=== PATIENT | female | born 1975 | race Hispanic/Latino ===

== ENCOUNTER 2018-03-19 18:00 | Emergency (ER) | payer MEDICAID ==
[2018-03-19 19:13] LABS: APPEARANCE,URINE Clear (CLEAR); BILIRUBIN,URINE Negative (NEGATIVE); COLOR,URINE Yellow (YELLOW); GLUCOSE, URINE (UA) Negative (NEGATIVE); KETONES,URINE Negative (NEGATIVE); LEUKOCYTE ESTERASE ,URINE Negative (NEGATIVE); NITRATE,URINE Negative (NEGATIVE); OCCULT BLOOD,URINE Negative (NEGATIVE); PROTEIN,URINE Negative (NEGATIVE)
[2018-03-19 19:16] LABS: HCG,QUAL RESULT NEGATIVE (NEGATIVE)
[2018-03-19] MEDS ORDERED: SODIUM CHLORIDE 0.9% 1000ML 1,000 ML IV ONE (19:24)
[2018-03-19] MEDS ORDERED: KETOROLAC TROMETHAMINE 30MG/ML ONE (19:24)
[2018-03-19 19:27] LABS: BASOPHILS % (AUTO) 0.8 % (0.0-5.0); EOSINOPHILS % (AUTO) 0.3 % (0.0-8.0); HEMATOCRIT 35.1 % (36-48); LYMPHOCYTES % (AUTO) 16.1 % (21.0-51.0); MEAN CORPUSCULAR HEMOGLOBIN 25.7 pg (27.0-33.0); MEAN CORPUSCULAR HGB CONC 33.3 g/dL (32.0-36.0); MEAN CORPUSCULAR VOLUME 77.3 fL (79-99); MONOCYTES % (AUTO) 7.8 % (3.0-13.0); PLATELET COUNT (AUTO) 185 K/uL (130-400); RED BLOOD CELL COUNT(AUTO) 4.54 MIL/uL (4.00-5.50); RED CELL DISTRIBUTION WIDTH 17.2 % (11.0-15.5); WHITE BLOOD COUNT (AUTO) 5.9 K/uL (4.8-10.8)
[2018-03-19 19:39] LABS: CREATININE 1.1 mg/dL (0.5-1.5); POTASSIUM 3.8 mmol/L (3.5-5.1)
[2018-03-19] MEDS ORDERED: IOHEXOL-350 75 ML VIAL IV ONE (19:48)
[2018-03-19 19:49] LABS: ALBUMIN 3.2 g/dL (3.5-5.0); BILIRUBIN,DIRECT 0.1 mg/dL (0.0-0.3); BILIRUBIN,TOTAL 0.4 mg/dL (0.2-1.0); TOTAL PROTEIN, SERUM 7.6 g/dL (6.0-8.3)
[2018-03-19] MEDS ORDERED: ACETAMINOPHEN-CODEINE ELIXIR 5 ML UDCUP ONE (21:33)
== END 2018-03-19 23:39 | disposition home or self-care (01) ==
LOC: EDH 18:00
DX: N83.299 Other ovarian cyst, unspecified side (principal); R10.2 Pelvic and perineal pain; Z88.6 Allergy status to analgesic agent; Z72.0 Tobacco use
CPT/HCPCS: 36415; 74177; 76856; 80048; 80076; 81003; 81025; 83690; 85025; 87210; 87486; 87797; 96374; 99285; J1885; J7030; Q9967

== ENCOUNTER 2018-04-13 05:06 | Emergency (ER) | payer MEDICAID | END 2018-04-13 05:54 | disposition home or self-care (01) | LOC: EDH 05:06 | DX: J20.9 Acute bronchitis, unspecified (principal); M54.9 Dorsalgia, unspecified; Z88.8 Allergy status to other drugs, medicaments and biological substances; Z98.890 Other specified postprocedural states ==

== ENCOUNTER 2018-08-03 19:12 | Emergency (ER) | payer MEDICAID | END 2018-08-03 20:05 | disposition home or self-care (01) | LOC: EDH 19:12 | DX: R05 Cough (principal); R09.3 Abnormal sputum; Z90.49 Acquired absence of other specified parts of digestive tract; Z88.6 Allergy status to analgesic agent ==

== ENCOUNTER 2023-01-02 09:16 | Observation (INO) | payer MEDICAID, OTHER ==
[~2023-01-02] VITALS: Ht 152.4 cm; Wt 63.0 kg
[2023-01-02 09:45] LABS: BASOPHILS % (AUTO) 0.4 % (0.0-5.0); EOSINOPHILS % (AUTO) 3.9 % (0.0-8.0); HEMATOCRIT 21.2 % (36-48); LYMPHOCYTES % (AUTO) 5.3 % (21.0-51.0); MEAN CORPUSCULAR HEMOGLOBIN 15.9 pg (27.0-33.0); MEAN CORPUSCULAR HGB CONC 26.4 g/dL (32.0-36.0); MEAN CORPUSCULAR VOLUME 60.1 fL (79-99); MONOCYTES % (AUTO) 7.9 % (3.0-13.0); PLATELET COUNT (AUTO) 224 K/uL (130-400); RED BLOOD CELL COUNT(AUTO) 3.53 MIL/uL (4.00-5.50); WHITE BLOOD COUNT (AUTO) 18.7 K/uL (4.8-10.8)
[2023-01-02 09:59] LABS: APPEARANCE,URINE CLOUDY (CLEAR); BILIRUBIN,URINE NEGATIVE (NEGATIVE); COLOR,URINE YELLOW (YELLOW); GLUCOSE, URINE (UA) NEGATIVE (NEGATIVE); KETONES,URINE NEGATIVE (NEGATIVE); LEUKOCYTE ESTERASE ,URINE 500 Leu/uL (NEGATIVE); NITRATE,URINE NEGATIVE (NEGATIVE); OCCULT BLOOD,URINE LARGE (NEGATIVE); PH,URINE 5.5 (5.0-8.0); PROTEIN,URINE 70 mg/dL (NEGATIVE)
[2023-01-02 10:07] LABS: MUCUS,URINE MOD LPF (None Seen); RBC,URINE TNTC /HPF (0-1); SQUAMOUS EPITHELIAL CELL,UR RARE /HPF (0-2); WBC,URINE TNTC /HPF (0-1)
[2023-01-02 10:07] LABS: CREATININE 0.9 mg/dL (0.5-1.5); POTASSIUM 3.3 mmol/L (3.5-5.1)
[2023-01-02 10:11] LABS: ALBUMIN 2.7 g/dL (3.5-5.0); TOTAL PROTEIN, SERUM 6.6 g/dL (6.0-8.3)
[2023-01-02] MEDS ORDERED: CEFTRIAXONE 1G VIAL IVPB ONE (12:30)
[2023-01-02] MEDS ORDERED: FAMOTIDINE 20MG TAB PO ONE (13:00)
[2023-01-02] MEDS ORDERED: MAGNESIUM 2GM PREMIX 50ML 50 ML IV PRN (16:00)
[2023-01-02] MEDS ORDERED: POTASSIUM CHLORIDE 10% ELIXIR 20 MEQ/15 ML UDCUP PO PRN (16:00)
[2023-01-02] MEDS ORDERED: POTASSIUM CHLORIDE 20MEQ/100ML 100 ML IV PRN (16:00)
[2023-01-02] MEDS ORDERED: IOHEXOL-350 75 ML VIAL IV ONE (16:31)
[2023-01-02 19:22] VITALS: BP 105/63; PULSE 80; RESP 20
[2023-01-02 20:15] VITALS: O2SAT 100
[2023-01-02 20:28] LABS: HEMATOCRIT 26.3 % (36-48)
[2023-01-02 23:09] VITALS: BP 108/56; PULSE 89; RESP 20
[2023-01-03] VITALS (8 sets, daily range): BP systolic 100–128; BP diastolic 49–90; PULSE 70–80; RESP 18–24; O2SAT 0–99
[2023-01-03 08:33] LABS: CREATININE 0.8 mg/dL (0.5-1.5); POTASSIUM 3.6 mmol/L (3.5-5.1)
[2023-01-03] MEDS: FAMOTIDINE 20MG TAB PO SCH (08:45)
[2023-01-03] MEDS: KCL 20 MEQ ERTAB PO PRN ×2 (09:37→12:27)
[2023-01-03 09:40] LABS: BASOPHILS % (AUTO) 0.5 % (0.0-5.0); EOSINOPHILS % (AUTO) 5.7 % (0.0-8.0); HEMATOCRIT 23.5 % (36-48); LYMPHOCYTES % (AUTO) 11.3 % (21.0-51.0); MEAN CORPUSCULAR HEMOGLOBIN 18.1 pg (27.0-33.0); MEAN CORPUSCULAR HGB CONC 28.5 g/dL (32.0-36.0); MEAN CORPUSCULAR VOLUME 63.5 fL (79-99); MONOCYTES % (AUTO) 10.1 % (3.0-13.0); NEUTROPHILS % (AUTO) 71.8 % (40.0-77.0); PLATELET COUNT (AUTO) 206 K/uL (130-400); RED CELL DISTRIBUTION WIDTH 27.7 % (11.0-15.5); WHITE BLOOD COUNT (AUTO) 13.1 K/uL (4.8-10.8)
[2023-01-04 04:00] VITALS: BP 103/64; PULSE 71; RESP 24
[2023-01-04 04:48] LABS: BASOPHILS % (AUTO) 0.6 % (0.0-5.0); HEMATOCRIT 30.1 % (36-48); LYMPHOCYTES % (AUTO) 16.4 % (21.0-51.0); MEAN CORPUSCULAR HEMOGLOBIN 20.5 pg (27.0-33.0); MEAN CORPUSCULAR HGB CONC 29.6 g/dL (32.0-36.0); MEAN CORPUSCULAR VOLUME 69.2 fL (79-99); MONOCYTES % (AUTO) 11.2 % (3.0-13.0); NEUTROPHILS % (AUTO) 62.2 % (40.0-77.0); PLATELET COUNT (AUTO) 210 K/uL (130-400); RED BLOOD CELL COUNT(AUTO) 4.35 MIL/uL (4.00-5.50); RED CELL DISTRIBUTION WIDTH 29.1 % (11.0-15.5); WHITE BLOOD COUNT (AUTO) 11.3 K/uL (4.8-10.8)
[2023-01-04 05:05] LABS: ALBUMIN 2.2 g/dL (3.5-5.0); CREATININE 0.9 mg/dL (0.5-1.5); POTASSIUM 4.3 mmol/L (3.5-5.1)
[2023-01-04 06:02] LABS: ERYTHROCYTE SEDIMENTATION RATE 32 MM/HR (0-20)
[2023-01-04 07:58] VITALS: BP 115/72; PULSE 63; RESP 18
[2023-01-04 08:30] VITALS: O2SAT 98
[2023-01-04] MEDS: FAMOTIDINE 20MG TAB PO SCH (08:31)
[2023-01-04] MEDS ORDERED: DOCUSATE SODIUM 100 MG CAP PO SCH (09:00)
[2023-01-04] MEDS ORDERED: LEVO-70 PO (10:19)
[2023-01-04 12:00] VITALS: BP 109/73; PULSE 71; RESP 18
[2023-01-24] MEDS ORDERED: BISA10SU61 RC (12:50)
[2023-01-24] MEDS ORDERED: ONDA4TAB10 PO (12:53)
== END 2023-01-04 12:30 | disposition home or self-care (01) ==
LOC: EDH 09:16 → EDHIP 09:17 → UNDOADMOB 12:39 → 3CH 15:55
PROVIDERS: ADMIT Hospitalist; ATTEND Hospitalist
DX: D62 Acute posthemorrhagic anemia (principal); N93.9 Abnormal uterine and vaginal bleeding, unspecified; D72.829 Elevated white blood cell count, unspecified; N39.0 Urinary tract infection, site not specified; E87.6 Hypokalemia; E43 Unspecified severe protein-calorie malnutrition; N92.0 Excessive and frequent menstruation with regular cycle; N81.9 Female genital prolapse, unspecified; N83.209 Unspecified ovarian cyst, unspecified side; Q33.3 Agenesis of lung; Z93.3 Colostomy status; Z79.899 Other long term (current) drug therapy
CPT/HCPCS: 96374; 36430 ×2; 99285; 80053 ×2; 85025 ×3; 85014; 85018; 86850; 86900; 86901; 86923 ×3; 87088; 81001; 36415 ×3; 74178; 76856; 80048; 86304; 76705; 83735; 85651; G0378 ×37; P9016 ×3; J0696; Q9967; 85007

== ENCOUNTER 2023-01-11 13:26 | Emergency (ER) | payer OTHER ==
[~2023-01-11 13:26] MED LIST: LEVO-70 PO
[2023-01-11] MEDS ORDERED: FAMOTIDINE 20MG TAB PO ONE (14:00)
[2023-01-11] MEDS ORDERED: CEFTRIAXONE 2GM VIAL IVPB ONE (14:00)
[2023-01-11] MEDS ORDERED: 0.9%NACL 1000ML 1,000 ML IV ONE (14:00)
[2023-01-11] MEDS ORDERED: KETOROLAC 30MG VIAL (30MG/ML) IVP ONE (14:00)
[2023-01-11 14:04] LABS: BASOPHILS % (AUTO) 0.5 % (0.0-5.0); EOSINOPHILS % (AUTO) 1.2 % (0.0-8.0); HEMATOCRIT 32.8 % (36-48); LYMPHOCYTES % (AUTO) 10.5 % (21.0-51.0); MEAN CORPUSCULAR HEMOGLOBIN 20.7 pg (27.0-33.0); MEAN CORPUSCULAR HGB CONC 30.5 g/dL (32.0-36.0); MEAN CORPUSCULAR VOLUME 67.8 fL (79-99); MONOCYTES % (AUTO) 8.5 % (3.0-13.0); NEUTROPHILS % (AUTO) 78.7 % (40.0-77.0); PLATELET COUNT (AUTO) 179 K/uL (130-400); RED BLOOD CELL COUNT(AUTO) 4.84 MIL/uL (4.00-5.50); RED CELL DISTRIBUTION WIDTH 31.8 % (11.0-15.5); WHITE BLOOD COUNT (AUTO) 9.3 K/uL (4.8-10.8)
[2023-01-11 14:14] LABS: CARBON DIOXIDE 24 mmol/L (21-32); CHLORIDE 100 mmol/L (101-111); CREATININE 0.9 mg/dL (0.5-1.5); GLOMERULAR FILTR. RATE CALC 80 mL/min (>90); GLUCOSE,RANDOM 97 mg/dL (70-105); POTASSIUM 3.7 mmol/L (3.5-5.1); SODIUM SERUM 133 mmol/L (136-145); UREA NITROGEN, BLOOD 13 mg/dL (7-18)
[2023-01-11 14:25] LABS: ALANINE AMINOTRANSFERASE 18 U/L (12-78); ALBUMIN 2.9 g/dL (3.5-5.0); ASPARTATE AMINOTRANSFERASE 52 U/L (10-37); HCG,QUANTITATIVE 0 mIU/mL (0-5); LIPASE < 50 U/L (114-286); TOTAL PROTEIN, SERUM 7.6 g/dL (6.0-8.3)
[2023-01-11 14:33] LABS: APPEARANCE,URINE CLEAR (CLEAR); BILIRUBIN,URINE NEGATIVE (NEGATIVE); COLOR,URINE YELLOW (YELLOW); GLUCOSE, URINE (UA) NEGATIVE (NEGATIVE); KETONES,URINE NEGATIVE (NEGATIVE); LEUKOCYTE ESTERASE ,URINE 250 Leu/uL (NEGATIVE); NITRATE,URINE NEGATIVE (NEGATIVE); OCCULT BLOOD,URINE LARGE (NEGATIVE); PROTEIN,URINE 70 mg/dL (NEGATIVE); UROBILINOGEN,URINE 3 mg/dL (0.2-1.0)
[2023-01-11 14:34] LABS: HCG,QUALITATIVE URINE NEGATIVE (NEGATIVE)
[2023-01-11 14:54] LABS: BACTERIA,URINE FEW /HPF (None Seen); MUCUS,URINE RARE LPF (None Seen); SQUAMOUS EPITHELIAL CELL,UR FEW /HPF (0-2)
[2023-01-11 16:25] VITALS: BP 115/65
[2023-01-11] MEDS ORDERED: CEPH500B PO (16:39)
[2023-01-11] MEDS ORDERED: PHEN-847 PO (16:39)
== END 2023-01-11 17:34 | disposition home or self-care (01) ==
LOC: EDH 13:26
DX: N39.0 Urinary tract infection, site not specified (principal); N83.202 Unspecified ovarian cyst, left side; Z90.49 Acquired absence of other specified parts of digestive tract; Z98.890 Other specified postprocedural states; Z88.8 Allergy status to other drugs, medicaments and biological substances
CPT/HCPCS: 99285; 96365; 76856; 96375; 80053; 84702; 83690; 85025; 87088; 81001; 81025; 36415; J7030; J0696; J1885